=== PATIENT | female | born 1960 | race Caucasian/White ===

== ENCOUNTER 2020-02-26 16:45 | Emergency (ER) | payer BC ==
--- NOTE | 2020-02-26 17:09 | ED Physician Documentation ---
PD HPI LOWER EXT INJURY - Stated complaint Stated Complaint: LT TOE INJURY - Chief complaint Chief Complaint: Ext Problem - History obtained from History obtained from: Patient - History of Present Illness PD HPI LOW EXT INJURY LOCATION: Left Type of injury: Blunt / blow Where injury occurred: Home Timing - duration: Hours (1) Timing - details: Abrupt onset Pain level max: 8 Pain level now: 4 Improved by: Rest, Ice, Immobilization Worsened by: Moving, Palpating Associated symptoms: No: Weakness, Numbness, Tingling, Swelling Contributing factors: No: Anticoagulated - Additional information Additional information: Patient accidentally stubbed her left fifth toe today. States it was deviated to the left. Has had it on ice since that occurred. Review of Systems Constitutional: denies: Fever Neurologic: denies: Focal weakness, Numbness PD PAST MEDICAL HISTORY - Past Medical History Past Medical History: No - Past Surgical History Past Surgical History: No - Allergies Allergies/Adverse Reactions: Allergies Allergy/AdvReac Type Severity Reaction Status Date / Time Sulfa (Sulfonamide Allergy Hives Verified 02/26/20 16:47 Antibiotics) - Social History Does the pt smoke?: No Smoking Status: Never smoker Does the pt drink ETOH?: No Does the pt have substance abuse?: No - Immunizations Immunizations are current?: Yes PD ED PE NORMAL - Vitals Vital signs reviewed: Yes - General General: Alert and oriented X 3, No acute distress - HEENT HEENT: Moist mucous membranes - Derm Derm: Warm and dry - Extremities Extremities: Other (Left foot - Tenderness to palpation over the fifth toe, no tenderness over the metatarsals. Neurovascular intact. No deformity. No ecchymosis. Mild swelling to the left fifth toe.) - Neuro Neuro: Alert and oriented X 3 Results - Vitals Vitals: Vital Signs - 24 hr 02/26/20 16:47 Temperature 36.5 C Heart Rate 56 L Respiratory 14 Rate Blood Pressure 160/98 H O2 Saturation 96 Oxygen O2 Source Room air - Rads (name of study) Left foot x-ray Radiology: Prelim report reviewed, EMP read contemporaneously, See rad report (Mildly displaced, oblique fracture involving the proximal phalanx of the fifth toe. ) PD MEDICAL DECISION MAKING - ED course Complexity details: reviewed results, re-evaluated patient, considered differential, d/w patient ED course: Patient with left fifth toe fracture. Placed in a postoperative shoe and rustam taped. She will utilize Motrin or Tylenol as needed for pain. Patient counseled regarding signs and symptoms for which I believe and urgent re- evaluation would be necessary. Patient with good understanding of and agreement to plan and is comfortable going home at this time This document was made in part using voice recognition software. While efforts are made to proofread this document, sound alike and grammatical errors may occur. Departure - Departure Disposition: 01 Home, Self Care Clinical Impression: Toe fracture, left Qualifiers: Encounter type: initial encounter Toe: lesser toe Fracture type: closed Phalanx: proximal Fracture alignment: displaced Qualified Code(s): S92.512A - Displaced fracture of proximal phalanx of left lesser toe(s), initial encounter for closed fracture Condition: Good Instructions: ED Fx Toe Closed Follow-Up: Your,doctor in 1 week [Other] Comments: You can use Motrin or Tylenol as needed for pain. Rustam taping will help to support the toe and the postoperative shoe will prevent excessive movement. Return if you worsen
--- NOTE | 2020-02-26 17:20 | XRAY Report ---
PROCEDURE: Toe(s) LT INDICATIONS: injured little toe with deformity TECHNIQUE: 3 views of the left lateral toe(s) acquired. COMPARISON: None available FINDINGS: Bones: There is an oblique, mildly displaced fracture through the proximal phalanx of the fifth toe. No intra-articular involvement can be seen. No additional fractures can be seen. No suspicious lytic or blastic lesions are seen. Soft tissues: No suspicious soft tissue densities. IMPRESSION: Mildly displaced, oblique fracture involving the proximal phalanx of the fifth toe. Reviewed by: Khadar Krishnamurthy MD on 02/26/2020 4:19 PM [facility] Approved by: Khadar Krishnamurthy MD on 02/26/2020 4:19 PM [facility] Station ID: [id number]
[2020-02-26 17:51] VITALS: BP 155/65
== END 2020-02-26 17:51 | disposition home or self-care (01) ==
LOC: ED 16:45
DX: S92.512A Displaced fracture of proximal phalanx of left lesser toe(s), initial encounter for closed fracture (principal); W22.8XXA Striking against or struck by other objects, initial encounter; Y92.009 Unspecified place in unspecified non-institutional (private) residence as the place of occurrence of the external cause
CPT/HCPCS: 73660; 99282; 99283

== ENCOUNTER 2020-10-07 08:00 | Outpatient (CLI) | payer BC, MEDICAID ==
--- NOTE | 2020-10-07 14:31 | XRAY Report ---
PROCEDURE: Chest 2 View X-Ray INDICATIONS: COUGH TECHNIQUE: 2 view(s) of the chest. COMPARISON: None. FINDINGS: Surgical changes and devices: None. Lungs and pleura: No pleural effusions or pneumothorax. Lungs are clear. Mediastinum: Mediastinal contours are normal. Heart size is normal. Bones and chest wall: No suspicious bony abnormalities. Soft tissues appear unremarkable. IMPRESSION: No evidence of an acute cardiopulmonary abnormality. Reviewed by: Ike Martinez DO on 10/07/2020 1:30 PM [facility] Approved by: Ike Martinez DO on 10/07/2020 1:30 PM [facility] Station ID: [id number]
== END 2020-10-07 08:01 | disposition home or self-care (01) ==
LOC: DI.S 08:00
PROVIDERS: ATTEND Physician Assistant
DX: R05 Cough (principal)

== ENCOUNTER → 2020-10-07 | Outpatient (CLI) | payer BC, MEDICAID | LOC: LAB.R 08:00 | PROVIDERS: ATTEND Physician Assistant | DX: R05 Cough (principal); Z20.822 Contact with and (suspected) exposure to COVID-19 ==

== ENCOUNTER 2020-10-20 10:53 | Outpatient (CLI) | payer MEDICAID ==
[2020-10-20 14:43] LABS: BASOPHILS % (AUTO) 0.7 %; EOSINOPHILS # (AUTO) 0.1 10^3/uL (0.0-0.7); EOSINOPHILS % (AUTO) 0.9 %; HGB - HEMOGLOBIN 13.8 g/dL (12.0-16.0); LYMPHOCYTES # (AUTO) 1.9 10^3/uL (1.5-3.5); MEAN CORPUSCULAR HEMOGLOBIN 32.3 pg (27.0-31.0); MEAN CORPUSCULAR HGB CONC 33.3 g/dL (32.0-36.0); MEAN PLATELET VOLUME 10.1 fL (7.9-10.8); MONOCYTES # (AUTO) 0.5 10^3/uL (0.0-1.0); MONOCYTES % (AUTO) 8.7 %; NEUTROPHILS # (AUTO) 3.1 10^3/uL (1.5-6.6); NEUTROPHILS % (AUTO) 55.5 %; PLT - PLATELET COUNT 237 10^3/uL (130-450); RED BLOOD COUNT 4.27 10^6/uL (4.20-5.40); WHITE BLOOD COUNT 5.6 x10^3/uL (4.8-10.8)
[2020-10-20 14:52] LABS: ALBUMIN/GLOBULIN RATIO 1.5 (1.0-2.2); ALKALINE PHOSPHATASE 44 IU/L (42-121); ALT ALANINE AMINOTRANSFERASE 43 IU/L (10-60); AST ASPARTATE AMINOTRANSFERASE 23 IU/L (10-42); BILIRUBIN,TOTAL 0.7 mg/dL (0.2-1.0); BUN - BLOOD UREA NITROGEN 15 mg/dL (6-20); CALCIUM 9.4 mg/dL (8.5-10.3); CARBON DIOXIDE - CO2 27 mmol/L (21-32); CHLORIDE 104 mmol/L (101-111); CHOL/HDL RATIO 5.7 (<4.4); CHOLESTEROL 278 mg/dL; CREATININE 0.8 mg/dL (0.4-1.0); GLUCOSE 105 mg/dL (70-100); HDL CHOLESTEROL 49 mg/dL; LDL CHOLESTEROL,CALCULATED 204 mg/dL; LDL/HDL RATIO 4.2 (<4.4); TOTAL PROTEIN 6.6 g/dL (6.7-8.2); VLDL CHOLESTEROL 25 mg/dL
== END 2020-10-20 10:54 | disposition home or self-care (01) ==
LOC: LAB.S 10:53
PROVIDERS: ATTEND Registered Nurse
DX: R03.0 Elevated blood-pressure reading, without diagnosis of hypertension (principal); J45.901 Unspecified asthma with (acute) exacerbation
CPT/HCPCS: 36415; 80053; 80061; 83721; 84443; 85025

== ENCOUNTER 2020-11-19 13:59 | Outpatient (CLI) | payer MEDICAID ==
--- NOTE | 2020-11-20 11:34 | Mammography Report ---
BILATERAL DIGITAL SCREENING MAMMOGRAM 3D/2D: 11/19/2020 CLINICAL: Routine screening. Comparison is made to exams dated: 07/14/2019 mammogram, 06/14/2018 mammogram, and 06/20/2017 mammogra m - [facility]. There are scattered fibroglandular elements in both breasts. No significant masses, calcifications, or other findings are seen in either breast. There has been no significant interval change. IMPRESSION: NEGATIVE There is no mammographic evidence of malignancy. A 1 year screening mammogram is recommended. This exam was interpreted at Station ID: [id number]. NOTE: For mammograms, a report in lay terms will be sent to the patient. Approximately 15% of breast malignancies will not be visualized mammographically. In the management of a palpable breast mass, a negative mammogram must not discourage biopsy of a clinically suspicious lesion. Electronically Signed By: Girish Sharma M.D. ddp/penrad:11/19/2020 15:00:01 ACR BI-RADS Category 1: Negative 3341F PARENCHYMAL PATTERN: (A) - The breast(s) demonstrate(s) scattered fibroglandular densities. BI-RADS CATEGORY: (1) - 1 RECOMMENDATION: (ANNUAL) - Recommend routine annual screening mammography. [id number] 1 year screening LATERALITY: (B)
== END 2020-11-19 14:00 | disposition home or self-care (01) ==
LOC: DI.S 13:59
PROVIDERS: ATTEND Registered Nurse
DX: Z12.31 Encounter for screening mammogram for malignant neoplasm of breast (principal); Z80.3 Family history of malignant neoplasm of breast

== ENCOUNTER 2020-12-27 16:54 | Emergency (ER) | payer BC, MEDICAID ==
--- OUTSIDE RECORDS SUMMARY | 2020-12-27 17:11 | EXTERNAL MEDICAL SUMMARY RPT | Continuity of Care Document ---
:1960 Demographics Phone Unavailable Preferred Language Unknown Marital Status Unknown Anabaptist Affiliation Unknown Race Unknown Ethnic Group Unknown Author Organization [facility] Address [address] [place] [address] Phone Social History date description facility [id number]
--- NOTE | 2020-12-27 17:22 | ED Physician Documentation ---
History of Present Illness - Stated complaint Stated Complaint: LT ARM NUMB - Chief complaint Chief Complaint: Ext Problem - History obtained from History obtained from: Patient - History of Present Illness Timing: How many weeks ago (4) - Additonal information Additional information: 60-year-old female presents emergency department for evaluation of left arm we akness. She reports that for most of the last month she has felt that her left arm is heavy and weak. It is often worse after working out or when she swims. She denies that she has had any chest pain or shortness of air. No headaches. She denies any neck pain shoulder pain history of any rotator cuff pathology. 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 No smoking history. Denies any history of coronary artery disease or CVA. No alcohol use. Review of Systems Constitutional: denies: Fever, Chills Eyes: reports: Reviewed and negative Ears: reports: Reviewed and negative Nose: reports: Reviewed and negative Throat: reports: Reviewed and negative Cardiac: denies: Chest pain / pressure, Palpitations, Pedal edema, Calf pain Respiratory: denies: Dyspnea, Cough GI: denies: Abdominal Pain, Nausea, Vomiting : denies: Dysuria, Frequency, Hesitancy Skin: denies: Rash, Lesions Musculoskeletal: denies: Neck pain, Back pain, Extremity pain Neurologic: reports: Focal weakness (left arm). denies: Generalized weakness, Numbness, Difficulty speaking, Syncope, Seizure, Confused, Headache, Head injury, LOC Psychiatric: denies: Depressed, Suicidal PD PAST MEDICAL HISTORY - Past Surgical History Past Surgical History: No - Allergies Allergies/Adverse Reactions: Allergies Allergy/AdvReac Type Severity Reaction Status Date / Time Sulfa (Sulfonamide Allergy Hives Verified 12/27/20 16:57 Antibiotics) - Social History Does the pt smoke?: No Smoking Status: Never smoker Does the pt drink ETOH?: No Does the pt have substance abuse?: No - Immunizations Immunizations are current?: Yes PD ED PE EXPANDED - General General: Alert, No acute distress, Well developed/nourished - HEENT HEENT: Atraumatic, PERRL - Neck Neck: Supple w/out meningeal sx, Other (numbness and tingling in left arm with axial loading). No: Adenopathy, Bony TTP - Cardiac Cardiac: Regular Rate, Radial strong equal, Pedal strong equal, Cap refill < 2 sec. No: Murmur Present - Respiratory Respiratory: Clear to ausultation irina. No: Distress, Labored - Abdomen Abdomen: Normal Bowel sounds. No: Tender to palpation - Extremities Extremities: Normal, Left shoulder (Patient able to move the shoulder fully in all planes without any tenderness elicited. Mild loss of strength against resistance with the elbow in a flexed position. Negative Jurgenson's and empty can.) - Neuro Neuro: Alert and Oriented X 3, CNII-XII intact, Normal gait, Normal finger nose, Normal speech, Other (noted flat drift with left arm). No: CN deficit - GCS Eye Opening: Spontaneous Motor: Obeys Commands Verbal: Oriented Total: 15 Results - Vitals Vitals: Vital Signs - 24 hr 12/27/20 16:58 Temperature 36.5 C Heart Rate 57 L Respiratory 16 Rate Blood Pressure 176/88 H O2 Saturation 98 Oxygen O2 Source Room air - EKG (time done) 1735 Rate: Rate (enter#) (53) Rhythm: NSR Maribel: Normal Intervals: No: Prolonged QT QRS: LVH Ischemia: Normal ST segments Compare to prior EKG: Old EKG unavailable Computer interpretation: Agree with computer - Labs Labs: Laboratory Tests 12/27/20 12/27/20 12/27/20 17:24 17:24 17:24 WBC 6.4 RBC 4.35 Hgb 13.9 Hct 40.7 MCV 93.6 MCH 32.0 H MCHC 34.2 RDW 12.1 Plt Count 238 MPV 9.3 Neut # (Auto) 3.6 Lymph # (Auto) 2.2 [place] # (Auto) 0.4 Eos # (Auto) 0.1 Baso # (Auto) 0.1 Absolute Nucleated RBC 0.00 Nucleated RBC % 0.0 Sodium 136 Potassium 3.7 Chloride 103 Carbon Dioxide 26 Anion Gap 7.0 BUN 15 Creatinine 0.8 Estimated GFR (MDRD) 73 L Glucose 143 H Calcium 8.8 Total Bilirubin 0.7 AST 22 ALT 37 Alkaline Phosphatase 56 Troponin I High Sens 8.8 Total Protein 6.9 Albumin 4.1 Globulin 2.8 Albumin/Globulin Ratio 1.5 Lipase 26 - Rads (name of study) CT head Radiology: Final report received (No evidence of acute stroke hemorrhage or mass) CT cervical Radiology: Final report received (No acute cervical spine fracture or dislocation. Degenerative endplate changes are noted at C5-6 and C6-7.) PD MEDICAL DECISION MAKING - ED course Complexity details: reviewed results, re-evaluated patient, considered differential, d/w patient, d/w family ED course: This is a very well-appearing 6-year-old female that presents the emergency department for evaluation of left arm weakness for greater than 1 month. She reports that the arm feels heavy and weak and is often weaker after exercising or swimming. She denies any pain in the shoulder or elbow or neck. On exam she has no focal neuro deficits however she did have a very slight downward drift of this arm. It is also very subtly weak. Differentials considered include but not limited to acute coronary syndrome. Her EKG is nonischemic high-sensitivity troponin is negative. Screening labs are without any worrisome acute abnormality. She did have increased weakness and numbness with axial loading raising the suspicion that this may be related to cervical radiculopathy or degenerative disc disease. CT of the cervical spine does show degenerative disc disease which may be contributing. However an old CVA could not be ruled out however given the duration of the symptoms for greater than 1 month and emergent MRI is not indicated at this time. However a CT of the head today was without acute findings. These findings were discussed with the patient. She agrees to follow-up with her primary care provider in order to obtain an outpatient MRI. Emergent return precautions were discussed for focal weakness slurred speech droopy face or any other emergent concerns. Departure - Departure Disposition: 01 Home, Self Care Clinical Impression: Left arm weakness, Degenerative disc disease, cervical Condition: Stable Record reviewed to determine appropriate education?: Yes Comments: Bindu green are seen in the emergency department today for about 1 month of left arm weakness. Your screening EKG and labs are all essentially normal. It does not show signs that you are having a heart attack. The CT of your head was essentially normal. We did do a CT of your cervical spine that does show degenerative disc disease between C5 and C7. This may be the cause of the left arm weakness especially as you had tingling in the arm when I applied pressure to your neck. It is important that you discuss this ED visit with your primary care provider. You should be referred for an outpatient MRI of your brain for longer-term evaluation. If at any point you develop a suddenly severe headache, have slurred speech, droopy face sudden or different weakness please return immediately to the emergency department.
[2020-12-27 17:31] LABS: BASOPHILS # (AUTO) 0.1 10^3/uL (0.0-0.1); BASOPHILS % (AUTO) 1.1 %; EOSINOPHILS # (AUTO) 0.1 10^3/uL (0.0-0.7); EOSINOPHILS % (AUTO) 1.9 %; HCT - HEMATOCRIT 40.7 % (37.0-47.0); HGB - HEMOGLOBIN 13.9 g/dL (12.0-16.0); LYMPHOCYTES # (AUTO) 2.2 10^3/uL (1.5-3.5); LYMPHOCYTES % (AUTO) 34.9 %; MEAN CORPUSCULAR HGB CONC 34.2 g/dL (32.0-36.0); MEAN CORPUSCULAR VOLUME 93.6 fL (81.0-99.0); MEAN PLATELET VOLUME 9.3 fL (7.9-10.8); MONOCYTES # (AUTO) 0.4 10^3/uL (0.0-1.0); MONOCYTES % (AUTO) 6.1 %; NEUTROPHILS # (AUTO) 3.6 10^3/uL (1.5-6.6); NEUTROPHILS % (AUTO) 55.8 %; PLT - PLATELET COUNT 238 10^3/uL (130-450); RED BLOOD COUNT 4.35 10^6/uL (4.20-5.40); RED CELL DISTRIBUTION WIDTH 12.1 % (12.0-15.0); WHITE BLOOD COUNT 6.4 x10^3/uL (4.8-10.8)
[2020-12-27 17:45] LABS: ALBUMIN 4.1 g/dL (3.2-5.5); ALBUMIN/GLOBULIN RATIO 1.5 (1.0-2.2); BILIRUBIN,TOTAL 0.7 mg/dL (0.2-1.0); CALCIUM 8.8 mg/dL (8.5-10.3); CREATININE 0.8 mg/dL (0.4-1.0); POTASSIUM 3.7 mmol/L (3.5-5.0); TOTAL PROTEIN 6.9 g/dL (6.7-8.2)
--- NOTE | 2020-12-27 18:29 | CT Report ---
PROCEDURE: CERVICAL SPINE WO INDICATIONS: left arm weakness; ? radiculopathy TECHNIQUE: Noncontrast 3 mm thick sections acquired from the skull base to the T4 level. Sagittal and coronal r eformats were then constructed. For radiation dose reduction, the following was used: automated exp osure control, adjustment of mA and/or kV according to patient size. COMPARISON: None. FINDINGS: Image quality: Excellent. Bones: No fractures or dislocations. Degenerative endplate changes are noted at C5-6 and C6-7 levels . Visualized superior ribs are intact. Soft tissues: Prevertebral soft tissues are normal in thickness. No paravertebral hematomas. No ap ical pneumothoraces. IMPRESSION: 1. No acute cervical spine fracture or dislocation. 2. Degenerative disc disease in lower cervical spine as above. Reviewed by: Flavio Sorensen MD on 12/27/2020 5:28 PM [facility] Approved by: Flavio Sorensen MD on 12/27/2020 5:28 PM [facility] Station ID: [id number]
--- NOTE | 2020-12-27 18:30 | CT Report ---
PROCEDURE: HEAD WO INDICATIONS: left arm weakness TECHNIQUE: Noncontrast 4.5 mm thick angled axial sections acquired from the foramen magnum to the vertex. For r adiation dose reduction, the following was used: automated exposure control, adjustment of mA and/or kV according to patient size. COMPARISON: None. FINDINGS: Image quality: Excellent. CSF spaces: Basal cisterns are patent. No extra-axial fluid collections. Ventricles are normal in size and shape. Brain: No midline shift. No intracranial masses or hemorrhage. Yoon-white matter interface is norm al. Skull and face: Calvarium and visualized facial bones are intact, without suspicious lesions. Sinuses: Visualized sinuses and mastoids are clear. IMPRESSION: No evidence acute stroke, hemorrhage, or mass. Reviewed by: Brendon Fletcher MD on 12/27/2020 6:29 PM PDT Approved by: Brendon Fletcher MD on 12/27/2020 6:29 PM PDT Station ID: [id number]
[2020-12-27 19:21] VITALS: BP 159/99
== END 2020-12-27 19:22 | disposition home or self-care (01) ==
LOC: ED 16:54
DX: R29.898 Other symptoms and signs involving the musculoskeletal system (principal); R53.1 Weakness; R20.2 Paresthesia of skin; M50.322 Other cervical disc degeneration at C5-C6 level; I10 Essential (primary) hypertension
CPT/HCPCS: 36415; 80053; 83690; 84484; 85025; 93005; 99284